=== PATIENT | male | born 1970 | race Caucasian/White ===

== ENCOUNTER 2017-02-17 11:14 | Emergency (ER) | payer OTHER ==
[2017-02-17 11:28] VITALS: BP 168/94
--- NOTE | 2017-02-17 12:25 | UC ---
Ear Complaint HPI - HPI Summary HPI Summary: 46 yo healthy male who presents with c/o left ear "clogged" reporting every couple years he needs his ears flushed. He reports he has been noticing it has been clogged for a few weeks and today it become "more muffled" so he came in for ear flushing. He denies pain, fever or chills. otherwise he states he feels well. - History of Current Complaint Chief Complaint: UCEar Stated Complaint: PLUGGED EAR Time Seen by Provider: 02/17/17 12:25 Hx Obtained From: Patient Onset/Duration: Gradual Onset Severity Initially: Mild Severity Currently: Mild Pain Intensity: 0 Pain Scale Used: 0-10 Numeric Associated Signs/Symptoms: Positive: Hearing Loss - Allergies/Home Medications Allergies/Adverse Reactions: Allergies Allergy/AdvReac Type Severity Reaction Status Date / Time No Known Allergies Allergy Verified 02/17/17 11:28 Home Medications: Home Medications Fexofenadine (NF) [Heather 180 (NF)] 90 mg PO DAILY 02/17/17 [History Confirmed 02/17/17] PMH/Surg Hx/FS Hx/Imm Hx Previously Healthy: Yes - Surgical History Surgical History: None - Family History Known Family History: Positive: Hypertension - Social History Occupation: Student - PhD student at [employer] Alcohol Use: Occasionally Substance Use Type: None Smoking Status (MU): Never Smoked Tobacco Have You Smoked in the Last Year: No - Immunization History Hx Tetanus, Diphtheria Vaccination: Yes Vaccination Up to Date: Yes Review of Systems Constitutional: Other - left ear fullness Skin: Negative Eyes: Negative ENT: Other - see above Respiratory: Negative Cardiovascular: Negative Gastrointestinal: Negative Genitourinary: Negative Motor: Negative Neurovascular: Negative Musculoskeletal: Negative Neurological: Negative Psychological: Negative All Other Systems Reviewed And Are Negative: Yes Physical Exam Triage Information Reviewed: Yes Appearance: Well-Appearing, No Pain Distress, Well-Nourished, Obese Vital Signs: Initial Vital Signs Temp 98.3 F 02/17/17 11:26 Pulse 98 02/17/17 11:26 Resp 16 02/17/17 11:26 BP 168/94 02/17/17 11:26 Pulse Ox 99 02/17/17 11:26 Vital Signs Reviewed: Yes ENT: Positive: Other: - bilateral ears impacted cerumen - no erythema noted, non tender Neck: Positive: Supple, Nontender, No Lymphadenopathy Respiratory: Positive: Chest non-tender, Lungs clear, Normal breath sounds, No respiratory distress, No accessory muscle use Cardiovascular: Positive: RRR, No Murmur, Pulses Normal, Brisk Capillary Refill Musculoskeletal: Positive: ROM Intact Neurological: Positive: Alert Ear Complaint Course/Dx - Course Course Of Treatment: patient has ears flushed bilaterally. Patient noted to be hypertensive; pt reports white coat syndrome; discussed plan to follow up with [facility] within 1 week for a blood pressure check - Differential Dx/Diagnosis Differential Diagnosis/HQI/PQRI: Cerumen Impaction, Otitis Media Provider Diagnoses: 1. Cerumen Impaction - bilateral. 2. Hypertension Discharge - Discharge Plan Condition: Stable Disposition: HOME Patient Education Materials: Cerumen Impaction (ED) Referrals: [facility] [Outside] (follow up within 3-5 days for blood pressure check. )
== END 2017-02-17 12:54 | disposition home or self-care (01) ==
LOC: UCEAST 11:14
DX: H61.23 Impacted cerumen, bilateral (principal); I10 Essential (primary) hypertension; E66.9 Obesity, unspecified
CPT/HCPCS: 99212; G0463